=== PATIENT | female | born 1995 | race Caucasian/White ===

== ENCOUNTER 2016-06-05 11:35 | Emergency (ER) | payer BC ==
[2016-06-05 11:47] VITALS: BP 139/84; PULSE 87; RESP 16; TEMP 98.4; O2SAT 96
--- NOTE | 2016-06-05 12:50 | UCPHY ---
H & P Time Seen by Provider: 06/05/16 12:39 Patient Type: Established HPI/ROS: This patient presents with a chief complaint of sore throat and cough which has been present for 1 week. She has a roommate with strep and she is concerned that she might have a strep throat. She also has some bifrontal headache, myalgias but denies fever, ear pain, chest pain or shortness of breath. REVIEW OF SYSTEMS: Constitutional: Fatigue and malaise, denies fever Eyes: No complaints ENT: Sore throat, nasal congestion, denies ear pain Respiratory: Cough, no shortness of breath Cardiac: Denies chest pain Gastrointestinal: Not addressed Genitourinary: Not addressed Musculoskeletal: Myalgias Skin: No rash Neurological: Headache Smoking Status: Never smoked Physical Exam: GENERAL: Well-appearing, well-nourished and in no acute distress. HEAD: Atraumatic, normocephalic. EYES: sclera anicteric, conjunctiva are normal. ENT: TMs normal, nares patent, oropharynx clear without exudates. Moist mucous membranes. NECK: Normal range of motion, supple without lymphadenopathy or JVD. No tenderness LUNGS: Breath sounds clear to auscultation bilaterally and equal. No wheezes rales or rhonchi. HEART: Regular rate and rhythm EXTREMITIES: Normal range of motion, NEUROLOGICAL: Cranial nerves II through XII grossly intact. Normal speech, normal gait. PSYCH: Normal mood, normal affect. SKIN: Warm, dry, normal turgor, no visible rashes or lesions. Constitutional: Initial Vital Signs Temperature (C) 36.9 C 06/05/16 11:45 Heart Rate 87 06/05/16 11:45 Respiratory Rate 16 06/05/16 11:45 Blood Pressure 139/84 H 06/05/16 11:45 O2 Sat (%) 96 06/05/16 11:45 O2 Delivery Mode Room Air Allergies/Adverse Reactions: No Known Allergies Allergy (Verified 06/05/16 11:47) Home Medications: Medication Instructions Recorded Ibuprofen [Motrin (*)] 600 mg PO Q6 PRN #30 tab 01/04/16 Trinessa Tablet 01/04/16 Medical Decision Making Differential Diagnosis: I believe that this patient has a viral syndrome that antibiotics are not indicated. - Data Points Laboratory Results: 02/04/17 02/04/17 Unknown 11:51 Group A Strep Screen NEGATIVE (NEGATIVE) Group A Strep DNA Pending Departure - Departure Disposition: Home, Routine, Self-Care Clinical Impression: Pharyngitis Qualifiers: Pharyngitis/tonsillitis etiology: unspecified etiology Qualifier Code: (J02.9) Acute pharyngitis, unspecified Acute bronchitis Qualifiers: Bronchitis organism: unspecified organism Qualifier Code: (J20.9) Acute bronchitis, unspecified Condition: Good Instructions: Pharyngitis (ED), Acute Bronchitis (ED) Additional Instructions: If your symptoms have not resolved in another 5-7 days you should be re- evaluated. Cause for concern would be temperature greater than 101 degrees, time chest pain or shortness of breath. Adult Pain & Fever Control: We recommend Acetaminophen (Tylenol) and Ibuprofen (Motrin, Advil) for pain and fever control. When fever is high or pain severe, both drugs can be used at the same time, but at different intervals. Please note the time differences. Your dose is: Acetaminophen [650]mg every 4 to 6 hours ibuprofen [600]mg every [6] hours with food OR naproxen Sodium (Aleve) [440]mg every 12 hours. Note: do not take Acetaminophen with Hydrocodone (Vicodin, Lortab) or Oxycodone (Percocet). These medications also contain Acetaminophen. No more than 3000 mg of Acetaminophen should be taken in 24 hours (for an adult) . The maximal dose of ibuprofen that it is safe in a 24-hour period is 2400 mg. You may take 400 mg every 4 hours, 600 mg every 6 hours or 800 mg every 8 hours safely. - PQRS PQRS Measurement: Not applicable
== END 2016-06-05 13:00 | disposition home or self-care (01) ==
LOC: CED 11:35
DX: J02.9 Acute pharyngitis, unspecified (principal); J20.9 Acute bronchitis, unspecified
CPT/HCPCS: 87880-PO; 99214-PO; G0463-PO

== ENCOUNTER 2016-08-11 18:26 | Emergency (ER) | payer BC, OTHER ==
--- NOTE | 2016-08-11 18:32 | UCPHY ---
H & P Patient Type: New HPI/ROS: HPI CHIEF COMPLAINT: Muscle aches, joint pain, cough nonproductive HISTORY OF PRESENT ILLNESS: This patient otherwise healthy 21-year-old female no significant medical history does not take any daily medications she presents urgent care with muscle aches, joint pain, dry nonproductive cough, subjective chills. Flu-like illness. Runny nose. No neck stiffness or neck pain. Does have a frontal throbbing headache at times. Worse when she coughs. 24 hours of illness. Significant other in room is sick as well. Past Medical History:No medical history Past Surgical History: No surgical history Social History:Denies daily use of drugs alcohol tobacco products Family History: Noncontributory ROS REVIEW OF SYSTEMS: A comprehensive 10 point review of systems is otherwise negative aside from elements mentioned in the history of present illness. Exam Constitutional appears well nontoxic, triage nursing summary reviewed, vital signs reviewed, awake/alert. Tachy, febrile. Eyes normal conjunctivae and sclera, EOMI, PERRLA. HENT clear rhinorrhea from both nares, normal inspection, atraumatic, moist mucus membranes, no epistaxis, neck supple/ no meningismus, no raccoon eyes. Respiratory bronchitic sounding cough, nonproductive, clear to auscultation bilaterally, normal breath sounds, no respiratory distress, no wheezing. Cardiovascular rate normal, regular rhythm, no murmur, no edema, distal pulses normal. Gastrointestinal soft, non-tender, no rebound, no guarding, normal bowel sounds, no distension, no pulsatile mass. Genitourinary no CVA tenderness. Musculoskeletal no midline vertebral tenderness, full range of motion, no calf swelling, no tenderness of extremities, no meningismus, good pulses, neurovascularly intact. Skin pink, warm, & dry, no rash, skin atraumatic. Neurologic awake, alert and oriented x 3, AAOx3, moves all 4 extremities equally, motor intact, sensory intact, CN II-XII intact, normal cerebellar, normal vision, normal speech. Psychiatric normal mood/affect. Heme/Lymph/Immune no lymphadenopathy. Differential Diagnosis: Includes but is not limited to in a particular order, upper respiratory tract infection, sinusitis, viral syndrome, viral pneumonia, bacterial pneumonia, flu Medical Decision Making: Plan for patient ibuprofen 800 mg here in the Urgent Care, IV fluids, influenza. Chest x-ray, Tylenol. Re-evaluation: ED x-ray chest two view: negative for acute cardiopulmonary disease. Patient's constellation of symptoms are clinically flu-like illness viral syndrome. Patient be placed on ibuprofen for pain control and antipyretic, azithromycin, albuterol inhaler, prednisone, guaifenesin. she understands drink lots of fluids. Return to the urgent care or emergency room if she is worse this includes high fever, vomiting questions or concerns. At time of d/c she appears well non toxic. nad. Appears well. VSS. Okay with d/c planning. Return precuations given which include: High Fever, Vomiting, No feeling well, rash. Worsening symptoms/condition go to er. Source: Patient - Personal History Tetanus Vaccine Date: within 10 years - Medical/Surgical History Hx Asthma: No Hx Chronic Respiratory Disease: No Hx Diabetes: No Hx Cardiac Disease: No Hx Renal Disease: No Hx Cirrhosis: No Hx Alcoholism: No Hx HIV/AIDS: No Hx Splenectomy or Spleen Trauma: No Other PMH: Breast reduction, wisdom teeth - Family History Significant Family History: No pertinent family hx - Social History Smoking Status: Never smoked Constitutional: Initial Vital Signs Temperature (C) 38.1 C 08/11/16 18:34 Heart Rate 102 H 08/11/16 18:34 Respiratory Rate 18 08/11/16 18:34 Blood Pressure 120/93 H 08/11/16 18:34 O2 Sat (%) 97 08/11/16 18:34 O2 Delivery Mode Room Air Allergies/Adverse Reactions: No Known Allergies Allergy (Verified 06/05/16 11:47) Home Medications: Medication Instructions Recorded AZITHROMYCIN [Z-PACK] 250 mg PO DAILY #6 tab 08/11/16 Albuterol [Proventil Inhaler HFA 1 - 2 puffs IH Q4H #1 mdi 08/11/16 (*)] Guaifenesin [Guaifenesin ER] 600 mg PO BID #14 tab.er.12h 08/11/16 Ibuprofen [Motrin (*)] 800 mg PO Q6-8PRN #7 tab 08/11/16 predniSONE 60 mg PO DAILY #15 tab 08/11/16 Medical Decision Making - Data Points Laboratory Results: Laboratory Results 08/11/16 19:17 08/11/16 19:17 Medications Given: Discontinued Medications Acetaminophen (Tylenol) 1,000 mg PO EDNOW ONE Stop: 08/11/16 18:40 Last Admin: 08/11/16 19:17 Dose: 1,000 mg Sodium Chloride (Ns) 1,000 mls @ 0 mls/hr IV ONCE ONE PRN Reason: Wide Open Stop: 08/11/16 18:39 Last Admin: 08/11/16 19:18 Dose: 1,000 mls Ibuprofen (Motrin) 800 mg PO EDNOW ONE Stop: 08/11/16 18:36 Last Admin: 08/11/16 19:17 Dose: 800 mg Departure - Departure Disposition: Home, Routine, Self-Care Clinical Impression: Viral syndrome Condition: Good Instructions: Viral Syndrome (ED) Additional Instructions: 1. Drink lots of fluids stay well-hydrated. 2. Return to the urgent care or emergency room if you have worsening symptoms questions or concerns. 3.Keep your fever and chills down with Tylenol Motrin you may alternate these every 4-6 hours. Referrals: NONE *PRIMARY CARE P,. [Primary Care Provider] - As per Instructions Stand Alone Forms: School Excuse Prescriptions: Albuterol [Proventil Inhaler HFA (*)] 1 - 2 puffs IH Q4H #1 mdi AZITHROMYCIN [Z-PACK] 250 mg PO DAILY #6 tab Guaifenesin [Guaifenesin ER] 600 mg PO BID #14 tab.er.12h Ibuprofen [Motrin (*)] 800 mg PO Q6-8PRN #7 tab predniSONE 60 mg PO DAILY #15 tab - PQRS PQRS Measurement: n/a
[2016-08-11] MEDS ORDERED: IBUPROFEN 800 MG TAB PO ONE (18:35)
[2016-08-11] MEDS ORDERED: NS 1,000 ML IV ONE (18:38)
[2016-08-11] MEDS ORDERED: ACETAMINOPHEN 325 MG TAB PO ONE (18:39)
[2016-08-11 18:40] VITALS: RESP 20
[2016-08-11] MEDS ORDERED: IBUPROFEN 200 MG TAB PO ONE (19:08)
[2016-08-11] MEDS ORDERED: IBUPROFEN 600 MG TAB PO ONE (19:08)
[2016-08-11 19:25] LABS: % IMMATURE GRANULYOCYTES 0.3 % (0.0-1.1); ABSOLUTE IMMATURE GRANULOCYTES 0.02 10^3/uL (0.00-0.10); ADD DIFF? NO; ADD MORPH? NO; ADD SCAN? NO; ATYPICAL LYMPHOCYTE FLAG 20 (0-99); FRAGMENT RBC FLAG 0 (0-99); HEMATOCRIT 37.3 % (38.0-47.0); LEFT SHIFT FLG 0 (0-99); LIPEMIA HEMOLYSIS FLAG 90 (0-99); MEAN CELL HEMOGLOBIN 30.2 pg (27.9-34.1); MEAN CELL HEMOGLOBIN CONCENTR. 34.9 g/dL (32.4-36.7); MEAN CELL VOLUME 86.7 fL (81.5-99.8); MEAN PLATELET VOLUME 9.9 fL (8.7-11.7); PLATELET CLUMPS FLAG 50 (0-99); PLATELET COUNT 241 10^3/uL (150-400); RED CELL DISTRIBUTION WIDTH 12.5 % (11.5-15.2)
[2016-08-11 19:38] LABS: ANION GAP 14 mEq/L (8-16); CALCIUM 8.5 mg/dL (8.5-10.4); CARBON DIOXIDE 20 mEq/l (22-31); CHLORIDE 103 mEq/L (97-110); CREATININE 0.6 mg/dL (0.6-1.0); GLOMERULAR FILTRATION RATE > 60; GLUCOSE 86 mg/dL (70-100); POTASSIUM 3.8 mEq/L (3.5-5.2); SODIUM 137 mEq/L (134-144)
[2016-08-11 20:32] VITALS: BP 142/98; PULSE 87; TEMP 97.7; O2SAT 94
== END 2016-08-11 20:25 | disposition home or self-care (01) ==
LOC: CED 18:26
DX: B34.9 Viral infection, unspecified (principal)
CPT/HCPCS: 71020-PO; 80048-PO; 85025-PO; 87400-PO; 96360-PO; 99204-PO; G0463-PO

== ENCOUNTER 2017-02-03 09:24 | Emergency (ER) | payer OTHER ==
[2017-02-03 09:39] VITALS: BP 128/98; PULSE 84; RESP 18; TEMP 98; O2SAT 97
--- NOTE | 2017-02-03 09:49 | EDPHY ---
H & P Stated Complaint: c/o URI/ST/OVIEDO/Cough X 1 week Time Seen by Provider: 02/03/17 09:40 HPI/ROS: Chief Complaint: Sore throat, cough HPI: 21-year-old woman presenting with 2 days of cough, sore throat, congestion. Patient has been taking some DayQuil with some relief. She has some frontal headache. No nausea or vomiting. No shortness of breath. She is waking up with a lot of sputum in the morning which clears over the course of the day. She has been clearing her throat quite a bit. Does have a history of strep throat as a child. No nausea or vomiting. ROS: 10 point Review of Systems is negative except as noted in the HPI. PMH: Denies Social History: No smoking, occasional alcohol, occasional marijuana Family History: non-contributory Physical Exam: Gen: Awake, Alert, No Distress HEENT: Bilateral TMs are normal Nose: no rhinorrhea Eyes: PERRLA, EOMI Mouth: Moist mucosa moderate tonsillar hypertrophy, mild erythema, no exudate, uvula is midline Neck: Supple, no cervical lymphadenopathy Chest: nontender, lungs clear to auscultation Heart: S1, S2 normal, no murmur Abd: Soft, non-tender, no guarding Back: no CVA tenderness, no midline tenderness Ext: no edema, non-tender Skin: no rash Neuro: CN II-XII intact, Sensation grossly intact, Strength 5/5 in bilateral upper and lower extremities - Personal History LMP (Females 10-55): 8-14 Days Ago Tetanus Vaccine Date: within 10 years - Medical/Surgical History Hx Asthma: No Hx Chronic Respiratory Disease: No Hx Diabetes: No Hx Cardiac Disease: No Hx Renal Disease: No Hx Cirrhosis: No Hx Alcoholism: No Hx HIV/AIDS: No Hx Splenectomy or Spleen Trauma: No Other PMH: Breast reduction, wisdom teeth - Social History Smoking Status: Never smoked Constitutional: Initial Vital Signs Temperature (C) 36.6 C 02/03/17 09:37 Heart Rate 84 02/03/17 09:37 Respiratory Rate 18 02/03/17 09:37 Blood Pressure 128/98 H 02/03/17 09:37 O2 Sat (%) 97 02/03/17 09:37 O2 Delivery Mode Room Air Allergies/Adverse Reactions: No Known Allergies Allergy (Verified 06/05/16 11:47) Home Medications: Medication Instructions Recorded Control 02/03/17 Medical Decision Making ED Course/Re-evaluation: Strep screen is negative. Symptoms are consistent with a viral upper respiratory infection. Will prescribe supportive treatment. No indication for antibiotics at this time. She will follow up with her primary care physician as needed. - Data Points Laboratory Results: 02/03/17 02/03/17 Unknown 09:48 Group A Strep Screen NEGATIVE (NEGATIVE) Group A Strep DNA Pending Departure - Departure Disposition: Home, Routine, Self-Care Clinical Impression: Viral URI Condition: Good Instructions: Upper Respiratory Infection (ED) Additional Instructions: You may take [id number] cough and cold medicines as needed for your symptoms. Alternate ibuprofen with acetaminophen every 4 hours for fevers, chills, aches, or pains. Follow up with primary care physician in 3-4 days if symptoms are not improving. Referrals: Luz Mckinney MD [Medical Doctor] - As per Instructions
== END 2017-02-03 10:11 | disposition home or self-care (01) ==
LOC: CED 09:24
DX: J06.9 Acute upper respiratory infection, unspecified (principal)
CPT/HCPCS: 87880-PO